=== PATIENT | male | born 1990 | race Caucasian/White ===

== ENCOUNTER 2024-02-05 13:29 | Emergency (ER) | payer BC ==
[~2024-02-05] VITALS: Ht 185.4 cm; Wt 100.0 kg
[~2024-02-05 13:29] MED LIST: ASPIRIN E.C. 8181 MG PO; LEVAQUIN 5500 MG/TA1 PO; LIPITOR 10MG10 MG PO; NO HOME MEDICATIONS; NORCO 325 MG-51 TAB PO; ZOFRAN 4MG T4 MG/TAB PO
[2024-02-05 13:39] VITALS: TEMP 98.3
[2024-02-05] MEDS ORDERED: Cephalexin 500 MG CAP PO ONE (17:45)
[2024-02-05] MEDS ORDERED: CEPHALEXIN500 M1 PO (18:46)
[2024-02-05 18:53] VITALS: BP 129/81; PULSE 69
== END 2024-02-05 18:53 | disposition home or self-care (01) ==
LOC: COL.ER 13:29
DX: S61.217A Laceration without foreign body of left little finger without damage to nail, initial encounter (principal); Z23 Encounter for immunization; W31.2XXA Contact with powered woodworking and forming machines, initial encounter